=== PATIENT | female | born 1945 | race Caucasian/White ===

== ENCOUNTER 2020-03-19 10:51 | Outpatient (CLI) | payer MEDICARE, SELFPAY ==
[2020-03-19 12:05] LABS: Add Urine Microscopic? YES; Appearance Urine Clear (Clear); Bilirubin Urine Negative (Negative); Blood Urine Negative (Negative); Color Urine Colorless (Yellow); Glucose Urine UA Negative (Negative); Ketones Urine Negative (Negative); Leukocyte Esterase Ur Trace LEU/UL (Negative); Nitrate Urine Negative (Negative); Protein Urine Negative (Negative); RBC Urine 0-2 /hpf (0-2); Specific Grav Ur 1.006 (1.001-1.035); Squamous Epithelial Cell Urine Rare /hpf (Few); Urobilinogen Urine Negative mg/dL (<2.0); WBC Urine 0-3 /hpf
== END 2020-03-19 10:52 | disposition home or self-care (01) ==
PROVIDERS: PCP Internal Medicine; Visit Provider Internal Medicine
DX: R31.9 Hematuria, unspecified (principal)
CPT/HCPCS: 81001

== ENCOUNTER 2020-04-10 09:19 | Outpatient (CLI) | payer MEDICARE, SELFPAY ==
--- NOTE | 2020-04-10 09:20 | ECG_ITS ---
Measurements Intervals [place] Rate: 62 P: 31 SD: 149 QRS: 7 QRSD: 93 T: 33 QT: 439 QTc: 446 Interpretive Statements SINUS RHYTHM DELAYED PRECORDIAL R/S TRANSITION BORDERLINE ST-T WAVE ABNORMALITY- ANT/HIGH LAT LEADS BORDERLINE ECG Electronically Signed On 04-10-2020 14:43:38 [employer] by Chase Holly D.O.
[2020-04-10 10:08] LABS: Hematocrit 42.6 % (37.0-47.0); Hemoglobin 14.1 g/dL (12.0-15.0)
== END 2020-04-10 09:20 | disposition home or self-care (01) ==
PROVIDERS: PCP Internal Medicine; Visit Provider Obstetrics & Gynecology
DX: Z01.818 Encounter for other preprocedural examination (principal); N95.0 Postmenopausal bleeding; I10 Essential (primary) hypertension
CPT/HCPCS: 36415; 85014; 85018; 93005

== ENCOUNTER 2020-04-15 02:47 | Outpatient (CLI) | payer MEDICARE, SELFPAY ==
[2020-04-15 19:46] LABS: SARS-CoV-2 RNA PCR Negative
== END 2020-04-15 02:48 | disposition home or self-care (01) ==
LOC: ANHCOVIDDT 02:47
PROVIDERS: PCP Internal Medicine; Visit Provider Obstetrics & Gynecology
DX: Z01.812 Encounter for preprocedural laboratory examination (principal); Z20.828 Contact with and (suspected) exposure to other viral communicable diseases
CPT/HCPCS: 87635; C9803; U0003

== ENCOUNTER 2020-04-18 04:14 | Day surgery (SDC) | payer MEDICARE, SELFPAY ==
[2020-04-09 10:17] VITALS: BMI 26.6
--- NOTE | 2020-04-15 11:50 | PM.IMHP ---
H&P: HPI History of Present Illness Date/Time: 04/15/20 11:50 Chief complaint: Postmenopausal Bleeding Narrative: Marianela Resendiz is a 75 year old female admitted for hysteroscopy and dilatation curettage. She would she would noted remote history of pinkish discharge had not been sexually active. She underwent an ultrasound which showed an area of thickening inside the uterus with a questionable solid appearing lesion present. There is some vascular flow leading to making it unlikely to be a polyp. Risks and benefits of this procedure reviewed. She received the [employer] handout entitled hysteroscopy and dilatation and curettage respectively. She asked to proceed Review of Systems Review of Systems: All systems reviewed & are unremarkable except as noted in HPI and below PMFSH Past Medical History Medical History Arthritis Cataracts, bilateral Colonoscopy planned 2009 Coronary artery disease CABG done in 1999, Hypercholesterolemia Hypertension Musculoskeletal disorder Hammertoe right foot, Postmenopausal Seasonal allergies Systemic lupus erythematosus Surgical History Surgical History History of tonsillectomy Family History Family History Mother Family history of malignant neoplasm of breast in first degree relative Patient's mother is Father Patient's father is Acute myocardial infarction Family history of heart disease in male family member before age 55 Social History Social History Smoking status: Former smoker Second hand tobacco smoke exposure: No Smoking end date: 11/27/74 Additional smoking assessment comments: SMOKED 1 CIG AFTER DINNER X 10 YEARS Alcohol intake: current Drinks per week: 1 Substance use: never Spiritual care concerns: No Meds Home Medications and Allergies Home Medications Medication Instructions Recorded Confirmed Type aspirin 81 mg tablet,delayed 81 mg PO DAILY 05/07/19 04/09/20 History release diclofenac sodium 1 % topical gel 2 gm TOPICAL QID PRN 05/07/19 04/09/20 History ezetimibe 10 mg tablet 10 mg PO DAILY 05/07/19 04/09/20 History felodipine 5 mg tablet,extended 5 mg PO QAM 05/07/19 04/09/20 History release 24 hr hydrocortisone 2.5 % topical cream 1 applic RECTAL DAILY PRN 05/07/19 04/09/20 History with perineal applicator lisinopril 40 mg tablet 40 mg PO HS 05/07/19 04/09/20 History metoprolol tartrate 50 mg tablet 50 mg PO QAM 05/07/19 04/09/20 History atorvastatin 20 mg tablet 20 mg PO DAILY 05/10/19 04/09/20 History cetirizine [Zyrtec] 10 mg PO DAILY #30 tablet 05/26/19 04/09/20 Rx alprazolam 0.25 mg tablet 0.25 mg PO DAILY PRN #30 tablet 08/14/19 04/09/20 Rx alendronate 35 mg PO WEEKLY 04/09/20 04/09/20 History ascorbic acid (vitamin C) 282 mg PO DAILY 04/09/20 04/09/20 History [Chewable Vitamin C] cholecalciferol (vitamin D3) 50 mcg PO DAILY 04/09/20 04/09/20 History [Vitamin D3] hydroxychloroquine [Plaquenil] 400 mg PO QAM 04/09/20 04/09/20 History thttrlwamndb-Fd-zloh-minerals 1 tablet PO DAILY 04/09/20 04/09/20 History [Multiple Vitamin, Womens] Allergies Allergy/AdvReac Type Severity Reaction Status Date / Time codeine AdvReac Unknown Vomiting Verified 04/09/20 10:02 Exam Const: General: no acute distress Eyes: General: appearance normal, both eyes and all related structures Neck: Neck: supple and no JVD Thyroid: thyroid normal Resp: Effort & Inspection: normal respiratory effort Auscultation: clear to auscultation bilaterally Cardio: Rate: regular rate Rhythm: regular rhythm GI: Inspection: non-distended GI Palp: Yes Soft to palpation, No Tenderness to palpation present (GI) and No Guarding due to palpation present (GI) Auscultation: normal bowel sounds G
--- NOTE | 2020-04-17 10:27 | WPDANESEPPF ---
Anes - Initial Pre Proc Eval Procedure: Operation Date: 04/18/20 13:45 Proposed Procedures p Hysteroscopy, Dilation And Curettage With Polypectomy - Julius Sanders MD Date/Time: 04/17/20 10:27 Surgeon: Julius Sanders MD Pre Op Diagnosis: Postmenopausal Bleeding Patient Data Age: 75 Gender: F Height: 1.57 m Weight: 66 kg Allergies Allergy/AdvReac Type Severity Reaction Status Date / Time codeine AdvReac Unknown Vomiting Verified 04/18/20 12:02 Home Medications Medication Instructions Recorded Confirmed Type aspirin 81 mg tablet,delayed 81 mg PO DAILY 05/07/19 04/18/20 History release diclofenac sodium 1 % topical gel 2 gm TOPICAL QID PRN 05/07/19 04/18/20 History ezetimibe 10 mg tablet 10 mg PO DAILY 05/07/19 04/18/20 History felodipine 5 mg tablet,extended 5 mg PO QAM 05/07/19 04/18/20 History release 24 hr hydrocortisone 2.5 % topical cream 1 applic RECTAL DAILY PRN 05/07/19 04/18/20 History with perineal applicator lisinopril 40 mg tablet 40 mg PO HS 05/07/19 04/18/20 History metoprolol tartrate 50 mg tablet 50 mg PO QAM 05/07/19 04/18/20 History atorvastatin 20 mg tablet 20 mg PO DAILY 05/10/19 04/18/20 History cetirizine [Zyrtec] 10 mg PO DAILY #30 tablet 05/26/19 04/18/20 Rx alprazolam 0.25 mg tablet 0.25 mg PO DAILY PRN #30 tablet 08/14/19 04/18/20 Rx alendronate 35 mg PO WEEKLY 04/09/20 04/18/20 History ascorbic acid (vitamin C) 282 mg PO DAILY 04/09/20 04/18/20 History [Chewable Vitamin C] cholecalciferol (vitamin D3) 50 mcg PO DAILY 04/09/20 04/18/20 History [Vitamin D3] hydroxychloroquine [Plaquenil] 400 mg PO QAM 04/09/20 04/18/20 History hcjlvlnmukfo-Xe-agpz-minerals 1 tablet PO DAILY 04/09/20 04/18/20 History [Multiple Vitamin, Womens] Patient hx anesthesia problems: none Family hx anesthesia problems: none [facility] Past Medical History Medical History Arthritis Cataracts, bilateral Colonoscopy planned 2009 Coronary artery disease CABG done in 1999, Hypercholesterolemia Hypertension Musculoskeletal disorder Hammertoe right foot, Postmenopausal Seasonal allergies Systemic lupus erythematosus Surgical History Surgical History History of tonsillectomy Family History Family History Mother Family history of malignant neoplasm of breast in first degree relative Patient's mother is Father Patient's father is Acute myocardial infarction Family history of heart disease in male family member before age 55 Social History Social History Smoking status: Former smoker Second hand tobacco smoke exposure: No Smoking end date: 11/27/74 Additional smoking assessment comments: SMOKED 1 CIG AFTER DINNER X 10 YEARS Alcohol intake: current Drinks per week: 1 Substance use: never Living arrangements: with family Spiritual care concerns: No Anes - Eval Final PreProcedure Day of Procedure 04/17/20 10:27 Patient weight: overweight Heart: regular rate and rhythm Lungs: clear to auscultation and normal air movement Airway: Mallampati scale class II Neurological: alert and oriented Last oral intake: >/= 8 hours ASA classification: III Emergent: no Anesthetic plan: proceed Anesthesia type and monitoring: general GIVS and standard monitoring Informed Consent: The patient's anesthetic plan and its attendant risks and benefits were discussed with the patient/family/POA. Questions were solicited and answers provided to the satisfaction of the patient/family/POA.
--- NOTE | 2020-04-18 06:37 | WPDHPUPDATE1 ---
History and Physical Update Update Date/Time: 04/18/20 06:37 History and Physical has been reviewed, including an updated exam of the patient. There are NO changes in the patient's condition. Risks, benefits, and alternatives have been discussed and questions answered. Patient agrees to proceed with procedure.
[2020-04-18 12:06] VITALS: BP 147/63; PULSE 65; RESP 18; TEMP 36.8; O2SAT 99
[2020-04-18] MEDS: LACTATED RINGERS 1,000 ML 30 ML IV CONT (12:15)
--- NOTE | 2020-04-18 12:20 | WPDANESEPP ---
Anes - Eval Pre Procedure Procedure: Operation Date: 04/18/20 13:45 Proposed Procedures p Hysteroscopy, Dilation And Curettage With Polypectomy - Julius Sanders MD Date/Time: 04/18/20 12:20 Pre Op Diagnosis: Postmenopausal Bleeding Patient Data Age: 75 Gender: F Height: 5 ft 2 in Weight: 66 kg Allergies Allergy/AdvReac Type Severity Reaction Status Date / Time codeine AdvReac Unknown Vomiting Verified 04/18/20 12:02 Home Medications Medication Instructions Recorded Confirmed Type aspirin 81 mg tablet,delayed 81 mg PO DAILY 05/07/19 04/18/20 History release diclofenac sodium 1 % topical gel 2 gm TOPICAL QID PRN 05/07/19 04/18/20 History ezetimibe 10 mg tablet 10 mg PO DAILY 05/07/19 04/18/20 History felodipine 5 mg tablet,extended 5 mg PO QAM 05/07/19 04/18/20 History release 24 hr hydrocortisone 2.5 % topical cream 1 applic RECTAL DAILY PRN 05/07/19 04/18/20 History with perineal applicator lisinopril 40 mg tablet 40 mg PO HS 05/07/19 04/18/20 History metoprolol tartrate 50 mg tablet 50 mg PO QAM 05/07/19 04/18/20 History atorvastatin 20 mg tablet 20 mg PO DAILY 05/10/19 04/18/20 History cetirizine [Zyrtec] 10 mg PO DAILY #30 tablet 05/26/19 04/18/20 Rx alprazolam 0.25 mg tablet 0.25 mg PO DAILY PRN #30 tablet 08/14/19 04/18/20 Rx alendronate 35 mg PO WEEKLY 04/09/20 04/18/20 History ascorbic acid (vitamin C) 282 mg PO DAILY 04/09/20 04/18/20 History [Chewable Vitamin C] cholecalciferol (vitamin D3) 50 mcg PO DAILY 04/09/20 04/18/20 History [Vitamin D3] hydroxychloroquine [Plaquenil] 400 mg PO QAM 04/09/20 04/18/20 History udxxbgjemrbo-Nf-swmb-minerals 1 tablet PO DAILY 04/09/20 04/18/20 History [Multiple Vitamin, Womens] Patient hx anesthesia problems: none Family hx anesthesia problems: none PMFSH Past Medical History Medical History Arthritis Cataracts, bilateral Colonoscopy planned 2010 Coronary artery disease CABG done in 1999, Hypercholesterolemia Hypertension Musculoskeletal disorder Hammertoe right foot, Postmenopausal Seasonal allergies Systemic lupus erythematosus Surgical History Surgical History History of tonsillectomy Family History Family History Mother Family history of malignant neoplasm of breast in first degree relative Patient's mother is Father Patient's father is Acute myocardial infarction Family history of heart disease in male family member before age 55 Social History Social History Smoking status: Former smoker Second hand tobacco smoke exposure: No Smoking end date: 11/27/74 Additional smoking assessment comments: SMOKED 1 CIG AFTER DINNER X 10 YEARS Alcohol intake: current Drinks per week: 1 Substance use: never Living arrangements: with family Spiritual care concerns: No Exam Day of Procedure 04/18/20 12:20 Patient weight: normal Heart: regular rate and rhythm Lungs: clear to auscultation Airway: Mallampati scale class II Neurological: alert and oriented
[2020-04-18] MEDS: LIDOCAINE HCL 1% LOCAL INJ 20 ML VIAL 10 ML INFILTRATE (12:40)
--- NOTE | 2020-04-18 12:48 | PM.PROC ---
Procedure Note - Detailed Date of procedure: 04/18/20 Pre-op diagnosis: Postmenopausal Bleeding Surgeon: Julius Sanders MD Postop diagnosis: Postmenopausal bleeding / endometrial polyp Procedure: Hysteroscopy / dilatation and curettage / polypectomy Anesthesia: IV sedation local EBL: 5Cc Complications: None Findings: A benign-appearing endometrial polyp. Small amount of mucus. Otherwise benign-appearing endometrium. Description of procedure: The patient was prepped and draped in the normal sterile fashion placed in the dorsal lithotomy position. Under excellent IV sedation weighted speculum was placed in posterior fornix of vagina. Anterior lip of the cervix was grasped with a single-tooth tenaculum. 2.5cc of 1% xylocaine anesthesia placed at 2, 4, 8, 10:00 a.m. of the cervix. The uterus sounded to 8cm. Serial dilatation with fragmented dilators performed. This was followed by passage of the 5mm visualizing hysteroscope using normal saline as visualizing medium. A polypoid lesion was seen. This was grasped with a polyp forceps removed piecemeal. The uterus was then scraped over the entire 360? until a good grating sound was heard. No further tissue removed, the instruments removed. All sponge, needle, instrument counts were correct. Blood loss was estimated at5cc. There were no immediate complications
[2020-04-18 12:49] VITALS: BP 87/50; PULSE 61; RESP 20; O2SAT 91
[2020-04-18 13:15] VITALS: BP 112/62; PULSE 68; RESP 20
[2020-04-18 13:40] VITALS: BP 130/64; PULSE 52; RESP 20
== END 2020-04-18 13:59 | disposition home or self-care (01) ==
PROVIDERS: PCP Internal Medicine; Visit Provider Obstetrics & Gynecology
PROC: 0U5B8ZZ Destruction of Endometrium, Via Natural or Artificial Opening Endoscopic (ICD-10-PCS; CPT 58563; principal; 2020-04-18 13:45)
DX: C54.1 Malignant neoplasm of endometrium (principal); N84.0 Polyp of corpus uteri; I25.10 Atherosclerotic heart disease of native coronary artery without angina pectoris; I10 Essential (primary) hypertension; E78.00 Pure hypercholesterolemia, unspecified; M32.9 Systemic lupus erythematosus, unspecified; Z95.1 Presence of aortocoronary bypass graft; Z87.891 Personal history of nicotine dependence
CPT/HCPCS: 58558; 88305; A9270; J0131; J2405; J2704; J3010; J7030; J7120

== ENCOUNTER 2020-04-29 09:11 | Outpatient (CLI) | payer MEDICARE, SELFPAY ==
[2020-04-29 19:16] LABS: SARS-CoV-2 RNA PCR Negative
== END 2020-04-29 09:12 | disposition home or self-care (01) ==
LOC: ANHCOVIDDT 09:11
PROVIDERS: PCP Internal Medicine; Visit Provider Obstetrics & Gynecology
DX: Z01.812 Encounter for preprocedural laboratory examination (principal); Z20.828 Contact with and (suspected) exposure to other viral communicable diseases
CPT/HCPCS: 87635; C9803; U0003

== ENCOUNTER 2020-04-29 14:24 | Outpatient (CLI) | payer MEDICARE, SELFPAY ==
[2020-04-29 14:59] LABS: Basophils Absolute Auto 0.1 K/mm3 (0.0-0.1); Eosinophils Absolute Auto 0.1 K/mm3 (0-0.3); Eosinophils Percent Auto 1.3 % (0-4.4); Hematocrit 38.1 % (37.0-47.0); Hemoglobin 12.5 g/dL (12.0-15.0); Immature Granulocyte Absolute 0.01 K/mm3 (0.00-0.031); Immature Granulocyte Percent A 0.1 % (0-0.5); Lymphocytes Absolute Auto 1.67 K/mm3 (0.9-3.2); Lymphocytes Percent Auto 24.6 % (18.3-44.2); Mean Corpuscular HGB Conc 32.8 g/dl (32-36); Mean Corpuscular Hemoglobin 31.4 pg (26-34); Mean Corpuscular Volume 95.7 fl (80-100); Mean Platelet Volume 9.7 fl (7.4-10.4); Monocytes Absolute Auto 0.4 K/mm3 (0.1-0.6); Monocytes Percent Auto 6.5 % (2.6-8.5); Neutrophils Absolute Auto 4.5 K/mm3 (1.3-6.7); Neutrophils Percent Auto 66.5 % (45.5-73.1); Platelet Count Result 323 k/mm3 (150-375); Red Blood Count 3.98 M/mm3 (4.2-5.4); White Blood Count 6.8 K/mm3 (4.5-10.0)
== END 2020-04-29 14:25 | disposition home or self-care (01) ==
LOC: ANHSURGERY 14:25
PROVIDERS: PCP Internal Medicine; Visit Provider Obstetrics & Gynecology
DX: Z01.812 Encounter for preprocedural laboratory examination (principal); C54.1 Malignant neoplasm of endometrium
CPT/HCPCS: 36415; 85025; 86850; 86900; 86901; 87635; C9803; U0003

== ENCOUNTER 2020-05-01 01:20 | Day surgery (SDC) | payer MEDICARE, SELFPAY ==
--- NOTE | 2020-04-29 09:13 | PM.IMHP ---
H&P: HPI History of Present Illness Date/Time: 04/29/20 09:13 Chief complaint: endometrial CA, postmenopausal bleeding Narrative: Marianela Resendiz is a 75 year old female For robotic hysterectomy and bilateral salpingo-oophorectomy. She had a biopsy of a polyp that showed a grade 1 endometrial cancer. There was no myometrial invasion. She is admitted for hysterectomy and bilateral salpingo-oophorectomy. Risks and benefits were reviewed in full Review of Systems Review of Systems: All systems reviewed & are unremarkable except as noted in HPI and below PMFSH Past Medical History Medical History Arthritis Cataracts, bilateral Colonoscopy planned 2010 Coronary artery disease CABG done in 1999, Hypercholesterolemia Hypertension Musculoskeletal disorder Hammertoe right foot, Postmenopausal Seasonal allergies Systemic lupus erythematosus Surgical History Surgical History History of tonsillectomy Family History Family History Mother Family history of malignant neoplasm of breast in first degree relative Patient's mother is Father Patient's father is Acute myocardial infarction Family history of heart disease in male family member before age 55 Social History Social History Smoking status: Former smoker Second hand tobacco smoke exposure: No Smoking end date: 11/27/74 Additional smoking assessment comments: SMOKED 1 CIG AFTER DINNER X 10 YEARS Alcohol intake: current Drinks per week: 1 Substance use: never Spiritual care concerns: No Meds Home Medications and Allergies Home Medications Medication Instructions Recorded Confirmed Type aspirin 81 mg tablet,delayed 81 mg PO DAILY 05/07/19 04/18/20 History release diclofenac sodium 1 % topical gel 2 gm TOPICAL QID PRN 05/07/19 04/18/20 History ezetimibe 10 mg tablet 10 mg PO DAILY 05/07/19 04/18/20 History felodipine 5 mg tablet,extended 5 mg PO QAM 05/07/19 04/18/20 History release 24 hr hydrocortisone 2.5 % topical cream 1 applic RECTAL DAILY PRN 05/07/19 04/18/20 History with perineal applicator lisinopril 40 mg tablet 40 mg PO HS 05/07/19 04/18/20 History metoprolol tartrate 50 mg tablet 50 mg PO QAM 05/07/19 04/18/20 History atorvastatin 20 mg tablet 20 mg PO DAILY 05/10/19 04/18/20 History cetirizine [Zyrtec] 10 mg PO DAILY #30 tablet 05/26/19 04/18/20 Rx alprazolam 0.25 mg tablet 0.25 mg PO DAILY PRN #30 tablet 08/14/19 04/18/20 Rx alendronate 35 mg PO WEEKLY 04/09/20 04/18/20 History ascorbic acid (vitamin C) 282 mg PO DAILY 04/09/20 04/18/20 History [Chewable Vitamin C] cholecalciferol (vitamin D3) 50 mcg PO DAILY 04/09/20 04/18/20 History [Vitamin D3] hydroxychloroquine [Plaquenil] 400 mg PO QAM 04/09/20 04/18/20 History vfjpagifvftw-Va-ekvy-minerals 1 tablet PO DAILY 04/09/20 04/18/20 History [Multiple Vitamin, Womens] Allergies Allergy/AdvReac Type Severity Reaction Status Date / Time codeine AdvReac Unknown Vomiting Verified 04/18/20 12:02 Exam Const: General: no acute distress Eyes: General: appearance normal, both eyes and all related structures Neck: Neck: supple and no JVD Thyroid: thyroid normal Resp: Effort & Inspection: normal respiratory effort Auscultation: clear to auscultation bilaterally Cardio: Rate: regular rate Rhythm: regular rhythm GI: Inspection: non-distended GI Palp: Yes Soft to palpation, No Tenderness to palpation present (GI) and No Guarding due to palpation present (GI) Auscultation: normal bowel sounds : General: Yes bladder normal to palpation External Female Exam: normal external appearance Speculum Exam - Vagina: normal vaginal discharge and No vaginal bleeding Speculum Exam - Cervix: nontender Bimanual exam- vagi
[2020-04-29 10:38] VITALS: BMI 26.6
[2020-05-01] VITALS (15 sets, daily range): BP systolic 127–169; BP diastolic 58–75; PULSE 50–66; RESP 12–20; TEMP 36.2–36.7; O2SAT 95–100
--- NOTE | 2020-05-01 07:48 | WPDHPUPDATE1 ---
History and Physical Update Update Date/Time: 05/01/20 07:48 History and Physical has been reviewed, including an updated exam of the patient. There are NO changes in the patient's condition. Risks, benefits, and alternatives have been discussed and questions answered. Patient agrees to proceed with procedure.
--- NOTE | 2020-05-01 11:01 | WPDANESEPPF ---
Anes - Initial Pre Proc Eval Procedure: Operation Date: 05/01/20 12:00 Proposed Procedures p Robotic Assisted Total Vaginal Hysterectomy, Bilateral Salpingo-Oophorectomy - Julius Sanders MD Date/Time: 05/01/20 11:02 Surgeon: Julius Sanders MD Pre Op Diagnosis: endometrial CA, postmenopausal bleeding Patient Data Age: 75 Gender: F Height: 5 ft 2 in Weight: 66 kg Allergies Allergy/AdvReac Type Severity Reaction Status Date / Time codeine AdvReac Unknown Vomiting Verified 04/29/20 10:30 Home Medications Medication Instructions Recorded Confirmed Type aspirin 81 mg tablet,delayed 81 mg PO DAILY 05/07/19 04/29/20 History release diclofenac sodium 1 % topical gel 2 gm TOPICAL QID PRN 05/07/19 04/29/20 History ezetimibe 10 mg tablet 10 mg PO DAILY 05/07/19 04/29/20 History felodipine 5 mg tablet,extended 5 mg PO QAM 05/07/19 04/29/20 History release 24 hr hydrocortisone 2.5 % topical cream 1 applic RECTAL DAILY PRN 05/07/19 04/29/20 History with perineal applicator lisinopril 40 mg tablet 40 mg PO HS 05/07/19 04/29/20 History metoprolol tartrate 50 mg tablet 50 mg PO QAM 05/07/19 04/29/20 History atorvastatin 20 mg tablet 20 mg PO DAILY 05/10/19 04/29/20 History cetirizine [Zyrtec] 10 mg PO DAILY #30 tablet 05/26/19 04/29/20 Rx alendronate 35 mg PO WEEKLY 04/09/20 04/29/20 History ascorbic acid (vitamin C) 282 mg PO DAILY 04/09/20 04/29/20 History [Chewable Vitamin C] cholecalciferol (vitamin D3) 50 mcg PO DAILY 04/09/20 04/29/20 History [Vitamin D3] hydroxychloroquine [Plaquenil] 400 mg PO QAM 04/09/20 04/29/20 History qstacsdpobmd-Md-giqo-minerals 1 tablet PO DAILY 04/09/20 04/29/20 History [Multiple Vitamin, Womens] alprazolam 0.25 mg tablet 0.25 mg PO DAILY PRN #30 tablet 12/02/20 Rx hydrocodone-acetaminophen [[place]] 1 tablet PO Q4H PRN #20 tablet 05/01/20 Rx Patient hx anesthesia problems: none Family hx anesthesia problems: none PMFSH Past Medical History Medical History Arthritis Cataracts, bilateral Colonoscopy planned 2009 Coronary artery disease CABG done in 1999, Hypercholesterolemia Hypertension Musculoskeletal disorder Hammertoe right foot, Postmenopausal Seasonal allergies Systemic lupus erythematosus Surgical History Surgical History History of tonsillectomy Family History Family History Mother Family history of malignant neoplasm of breast in first degree relative Patient's mother is Father Patient's father is Acute myocardial infarction Family history of heart disease in male family member before age 55 Social History Social History Smoking status: Former smoker Second hand tobacco smoke exposure: No Smoking end date: 11/27/69 Additional smoking assessment comments: SMOKED < PACK/WEEK X5 YEARS Alcohol intake: current Drinks per week: 7 Alcohol use details: WINE, 1 GLASS/DAY Substance use: never Living arrangements: with family Additional living arrangements comments: Spiritual care concerns: No Anes - Eval Final PreProcedure Day of Procedure 05/01/20 11:02 Patient weight: overweight Heart: regular rate and rhythm Lungs: clear to auscultation Airway: Mallampati scale class II and special considerations poor opening Neurological: alert and oriented Last oral intake: >/= 8 hours ASA classification: III Emergent: no Anesthetic plan: proceed Anesthesia type and monitoring: general ETT and standard monitoring Informed Consent: The patient's anesthetic plan and its attendant risks and benefits were discussed with the patient/family/POA. Questions were solicited and answers provided to the satisfaction of the patient/family/POA.
[2020-05-01] MEDS: ACETAMINOPHEN 500 MG TABLET 1000 MG PO (11:21)
[2020-05-01] MEDS: LACTATED RINGERS 1,000 ML 30 ML IV CONT ×2 (11:32→13:48)
[2020-05-01] MEDS: KETOROLAC 15 MG/ML VIAL (*BKC) IV PUSH (11:40)
[2020-05-01] MEDS: ceFAZolin 2 GM/D5W 50 ML 2 GM/50 ML BAG IVPB (12:05)
--- NOTE | 2020-05-01 13:34 | PM.PROC ---
Procedure Note - Detailed Date of procedure: 05/01/20 Pre-op diagnosis: endometrial CA, postmenopausal bleeding Surgeon: Julius Sanders MD Postop diagnosis: Endometrial cancer/postmenopausal bleeding Procedure: Robotic total vaginal hysterectomy and bilateral salpingo-oophorectomy EBL: 100cc Anesthesia: General endotracheal Findings: Small uterus ovaries and tubes. The tissue was week. Complications: None Description of procedure: The patient was prepped and draped in the normal sterile fashion placed in dorsal lithotomy position. Under excellent general trach anesthesia weighted speculum placed in posterior fornix of vagina. Anterior lip of the cervix grasped with single-tooth tenaculum. Uterus sounded to 8cm. Serial dilatation with fragmented dilators performed followed by passage of the 8. IKE in 3. Cold cup. Next the 16 Belgian catheter was placed. The remainder the instruments reused and gloves were changed. A supraumbilical incision made. The Veress needle passed in the abdomen. Abdomen filled with CO2 gas [id number]. The 8mm trocar advanced in the abdomen. Downside visualized no injury seen. The gas was reattached and the patient placed in Trendelenburg. Right left lateral quadrant incisions were made the 8mm trocars advanced under direct visualization assuring no injury. Right upper quadrant incision made the 10mm trocar advanced under direct visualization assuring no injury. The robot was docked. The left round ligament grasped, burned, cut. Anteriorly bladder was dissected away last caudally to the opposite round ligament was clamped, burned, cut. Next the infundibulopelvic structure on the left was skeletonized to remove the left ovary tube clamped, burned, cut and brought to the level of the previously cut round ligament. In like fashion removing the right ovary and tube the infundibulopelvic structure was clamped, burned, cut and brought to the level of previously cut round ligament. Next the cardinal and broad ligaments were serially skeletonized. These were clamped, burned, cut. And brought down to the level uterine vessels the uterine vessels on the left were clamped, burned, cut. Excellent blanching was seen the uterine vessels on the right were clamped, burned, cut. A colpotomy incision was made the cervix uterus removed from the MARYA of vagina. Vagina was closed with continuous running 0V lock from lateral edge to lateral edge back the midline. Irrigation undertaken to clear hematuria was placed over the raw areas. The robot was undocked. The gas removed from the abdomen. The incisions closed with 4 Monocryl and glue. The patient went to recovery in satisfactory condition. All sponge, needle, instrument counts were correct.
[2020-05-01] MEDS: fentaNYL CITRATE INJ (*CRX) 100 MCG/2 ML VIAL 25 MCG IV PUSH ×3 (14:25→14:35)
[2020-05-01] MEDS: ONDANSETRON INJ 4 MG/2 ML VIAL IV PUSH (14:47)
--- NOTE | 2020-05-01 14:54 | SUR.PHASEI ---
1447; PT C/O MILD NAUSEA. ASKING FOR MEDICINE TO PREVENT WORSENING NAUSEA. 1455; PT AROUSES EASILY. STATES PAIN 4/10 AND NAUSEA IMPROVED. MEETS DISCHARGE CRITERIA.
--- NOTE | 2020-05-01 15:04 | PC.NURSE ---
This patient, Marianela Resendiz, was received from PACU per bed to room 289. Patient/family oriented to unit policies and routines
[2020-05-01] MEDS: DEXTROSE 5%/LACTATED RINGERS 1,000 ML 125 ML IV CONT ×2 (15:13→22:39)
[2020-05-01] MEDS: KETOROLAC 30 MG/ML VIAL (*BKC) IV PUSH (17:34)
[2020-05-01] MEDS: ATORVASTATIN 20 MG TABLET PO (21:01)
[2020-05-01] MEDS: lisinopriL 20 MG TABLET 40 MG PO (21:02)
[2020-05-01] MEDS: EZETIMIBE 10 MG TABLET PO (21:02)
[2020-05-01] MEDS: MORPHINE SULFATE (*CRX) 4 MG/ML INJ IV PUSH (22:13)
[2020-05-02 04:10] VITALS: BP 145/52; PULSE 60; PULSE 62; RESP 16; TEMP 36.8; O2SAT 99
[2020-05-02] MEDS: ONDANSETRON INJ 4 MG/2 ML VIAL IV PUSH (04:56)
[2020-05-02] MEDS: KETOROLAC 30 MG/ML VIAL (*BKC) IV PUSH (05:01)
[2020-05-02 05:32] LABS: Basophils Percent Auto 0.3 % (0.2-1.2); Hematocrit 33.5 % (37.0-47.0); Hemoglobin 11.1 g/dL (12.0-15.0); Immature Granulocyte Absolute 0.01 K/mm3 (0.00-0.031); Immature Granulocyte Percent A 0.1 % (0-0.5); Lymphocytes Absolute Auto 0.84 K/mm3 (0.9-3.2); Lymphocytes Percent Auto 9.6 % (18.3-44.2); Mean Corpuscular HGB Conc 33.1 g/dl (32-36); Mean Corpuscular Hemoglobin 31.8 pg (26-34); Mean Platelet Volume 10.6 fl (7.4-10.4); Monocytes Absolute Auto 0.7 K/mm3 (0.1-0.6); Monocytes Percent Auto 8.5 % (2.6-8.5); Neutrophils Absolute Auto 7.1 K/mm3 (1.3-6.7); Neutrophils Percent Auto 81.5 % (45.5-73.1); Platelet Count Result 231 k/mm3 (150-375); Red Blood Count 3.49 M/mm3 (4.2-5.4); Red Cell Distribution Width 13.3 % (11.5-14.5); White Blood Count 8.7 K/mm3 (4.5-10.0)
--- NOTE | 2020-05-02 06:50 | PM.DS ---
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 Hospital course was unremarkable. She remained afebrile. She was up, holding the difficulty, passing gas, eating regular diet and generally without complaints. Incisions were clean dry and intact Exam Const: General: no acute distress Eyes: General: appearance normal, both eyes and all related structures Neck: Neck: supple and no JVD Thyroid: thyroid normal Resp: Effort & Inspection: normal respiratory effort Auscultation: clear to auscultation bilaterally Cardio: Rate: regular rate Rhythm: regular rhythm GI: Inspection: non-distended GI Palp: Yes Soft to palpation, No Tenderness to palpation present (GI) and No Guarding due to palpation present (GI) Auscultation: normal bowel sounds : General: Yes bladder normal to palpation External Female Exam: normal external appearance Speculum Exam - Vagina: normal vaginal discharge and No vaginal bleeding Speculum Exam - Cervix: nontender Bimanual exam- vagina & uterus: bladder normal to palpation and No Cervical tenderness present OB/external & speculum: No vaginal bleeding Skin: General skin exam: no rashes or lesions noted Extrem: General: normal to inspection and no edema Psych: Mental Status: mental status grossly normal Affect: normal affect DS: Data Data Completed and Pending Pending studies at discharge: Pending at discharge 05/01/20 14:39 Surgical [PTH] Routine Labs on day of discharge: Labs from last 24 hours 05/02/20 04:32 WBC 8.7 RBC 3.49 L Hgb 11.1 L Hct 33.5 L MCV 96.0 MCH 31.8 MCHC 33.1 RDW 13.3 Plt Count 231 MPV 10.6 H Immature Gran % (Auto) 0.1 Neut % (Auto) 81.5 H Lymph % (Auto) 9.6 L [place] % (Auto) 8.5 Eos % (Auto) 0.0 Baso % (Auto) 0.3 Lymph # (Auto) 0.84 L [place] # (Auto) 0.7 H Eos # (Auto) 0.0 Baso # (Auto) 0.0 Abs Immat Gran (auto) 0.01 Absolute Neuts (auto) 7.1 H Absolute Nucleated RBC 0.0 Nucleated RBC % 0.0 Discharge Plan Discharge Patient Disposition: Home, Self-Care Stand Alone Forms: General Discharge Instructions Follow-up/Referrals: Julius Sanders MD [Physician] - Discharge Medications: New hydrocodone-acetaminophen [[place]] 5-325 mg tablet 1 tablet PO Q4H PRN (Reason: pain) Qty: 20 RF: 0 Continued cetirizine [Zyrtec] 10 mg tablet 10 mg PO DAILY Qty: 30 RF: 0 hydrocortisone [Anusol-HC] 2.5 % cream with perineal applicator 1 applic RECTAL DAILY PRN (Reason: Hemorrhoids) RF: 0 aspirin [Adult Low Dose Aspirin] 81 mg tablet,delayed release (DR/EC) 81 mg PO DAILY RF: 0 felodipine 5 mg tablet extended release 24 hr 5 mg PO QAM RF: 0 lisinopril 40 mg tablet 40 mg PO HS RF: 0 metoprolol tartrate 50 mg tablet 50 mg PO QAM RF: 0 diclofenac sodium [Voltaren] 1 % gel 2 gm TOPICAL QID PRN (Reason: Pain) RF: 0 ezetimibe [Zetia] 10 mg tablet 10 mg PO DAILY RF: 0 atorvastatin [Lipitor] 20 mg tablet 20 mg PO DAILY RF: 0 alendronate 35 mg tablet 35 mg PO WEEKLY RF: 0 hydroxychloroquine [Plaquenil] 200 mg tablet 400 mg PO QAM RF: 0 Multiple Vitamin, Womens Tablet 1 tablet PO DAILY RF: 0 cholecalciferol (vitamin D3) [Vitamin D3] 50 mcg (2,000 unit) Capsule 50 mcg PO DAILY RF: 0 ascorbic acid (vitamin C) 250 mg Tablet,Chewable 282 mg PO DAILY RF: 0 alprazolam [Xanax] 0.25 mg tablet 0.25 mg PO DAILY PRN (Reason: anxiety) Qty: 30 RF: 0
--- NOTE | 2020-05-02 06:53 | P.PNOB_ITS ---
OB - PN: Subj Subjective Date/time seen: 05/02/20 06:53 Patient comments: no complaints and pain well controlled OB - PN: Obj Data Labs CBC & Chem 7: 05/02/20 04:32 Labs: Laboratory Results - last 24 hr 05/02/20 04:32 WBC 8.7 RBC 3.49 L Hgb 11.1 L Hct 33.5 L MCV 96.0 MCH 31.8 MCHC 33.1 RDW 13.3 Plt Count 231 MPV 10.6 H Immature Gran % (Auto) 0.1 Neut % (Auto) 81.5 H Lymph % (Auto) 9.6 L [place] % (Auto) 8.5 Eos % (Auto) 0.0 Baso % (Auto) 0.3 Lymph # (Auto) 0.84 L [place] # (Auto) 0.7 H Eos # (Auto) 0.0 Baso # (Auto) 0.0 Abs Immat Gran (auto) 0.01 Absolute Neuts (auto) 7.1 H Absolute Nucleated RBC 0.0 Nucleated RBC % 0.0 OB - PN A/P Plan day: 1 Plan: routine care (Routine postoperative care), discharge home and follow up 6 weeks (2 weeks) Time Spent With Patient Time: Total time spent is greater than 50% in coordination of care (as d ocumented) at patient's floor/unit and/or counseling patient: Time with patient: less than 15 minutes Review of Systems Review of Systems: All systems reviewed & are unremarkable except as noted in HPI and below Exam Const: General: no acute distress Eyes: General: appearance normal, both eyes and all related structures Neck: Neck: supple and no JVD Thyroid: thyroid normal Resp: Effort & Inspection: normal respiratory effort Auscultation: clear to auscultation bilaterally Cardio: Rate: regular rate Rhythm: regular rhythm GI: Inspection: non-distended GI Palp: Yes Soft to palpation, No Tenderness to palpation present (GI) and No Guarding due to palpation present (GI) Auscultation: normal bowel sounds : General: Yes bladder normal to palpation External Female Exam: normal external appearance Speculum Exam - Vagina: normal vaginal discharge and No vaginal bleeding Speculum Exam - Cervix: nontender Bimanual exam- vagina & uterus: bladder normal to palpation and No Cervical tenderness present OB/external & speculum: No vaginal bleeding Skin: General skin exam: no rashes or lesions noted Extrem: General: normal to inspection and no edema Psych: Mental Status: mental status grossly normal Affect: normal affect
[2020-05-02 08:10] VITALS: BP 149/59; PULSE 65; RESP 18; TEMP 37.2; O2SAT 93
--- NOTE | 2020-05-02 08:12 | WPDANESPN ---
Anes - Prog Note Post-Op Date/Time: 05/02/20 08:12 Cardiovascular status: normal Respiratory status: normal Airway patency: baseline Mental status: baseline Post-Op hydration status: normal Vital Signs: Last Vital Signs Temp 36.8 C 05/02/20 04:10 Pulse 62 05/02/20 04:10 Resp 16 05/02/20 04:10 BP 145/52 H 05/02/20 04:10 Pulse Ox 99 05/02/20 04:10 Pain Score (VAS): 0 I/O: Intake & Output 05/01/20 05/02/20 05/02/20 23:59 07:59 15:59 Intake Total 1300 500 Output Total 300 600 Balance 1000 -100 Laboratory Tests 05/02/20 04:32 05/02/20 04:32 WBC 8.7 RBC 3.49 L Hgb 11.1 L Hct 33.5 L MCV 96.0 MCH 31.8 MCHC 33.1 RDW 13.3 Plt Count 231 MPV 10.6 H Immature Gran % (Auto) 0.1 Neut % (Auto) 81.5 H Lymph % (Auto) 9.6 L [place] % (Auto) 8.5 Eos % (Auto) 0.0 Baso % (Auto) 0.3 Lymph # (Auto) 0.84 L [place] # (Auto) 0.7 H Eos # (Auto) 0.0 Baso # (Auto) 0.0 Abs Immat Gran (auto) 0.01 Absolute Neuts (auto) 7.1 H Absolute Nucleated RBC 0.0 Nucleated RBC % 0.0 Post-procedural complaints: nausea Patient Feedback: Patient satisfied with anesthetic care.
--- NOTE | 2020-05-02 10:00 | PC.NURSE ---
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 PT verbalized understanding of such care.
[2020-05-02] MEDS: IBUPROFEN 600 MG TABLET PO (10:18)
[2020-05-02] MEDS: SIMETHICONE 80 MG TAB.CHEW PO (10:18)
[2020-05-02] MEDS: ENOXAPARIN 40 MG/0.4 ML SYRINGE SUB-Q (10:19)
[2020-05-02] MEDS: ONDANSETRON HCL ODT 4 MG TABLET PO (12:41)
--- NOTE | 2020-05-02 16:30 | PC.NURSE ---
PT received discharge instructions per protocol and verbalized understanding of such instructions.
--- NOTE | 2020-05-02 16:40 | PC.NURSE ---
PT discharged to home via wheelchair unaccompanied and taken to waiting car. follow up appts confirmed
== END 2020-05-02 16:40 | disposition home or self-care (01) ==
LOC: ANHSURGERY 10:02 → ANHOB2 15:07
PROVIDERS: PCP Internal Medicine; Visit Provider Obstetrics & Gynecology
PROC: (CPT 58571; principal; 2020-05-01 12:00)
DX: C54.1 Malignant neoplasm of endometrium (principal); N95.0 Postmenopausal bleeding; N80.0 Endometriosis of uterus; D25.1 Intramural leiomyoma of uterus; N73.6 Female pelvic peritoneal adhesions (postinfective); D18.09 Hemangioma of other sites; I25.10 Atherosclerotic heart disease of native coronary artery without angina pectoris; I10 Essential (primary) hypertension; E78.00 Pure hypercholesterolemia, unspecified; M32.9 Systemic lupus erythematosus, unspecified; Z95.1 Presence of aortocoronary bypass graft; Z87.891 Personal history of nicotine dependence; Z79.82 Long term (current) use of aspirin
CPT/HCPCS: 58571; S2900; 36415; 85025; 86850; 86900; 86901; 87635; 88307; 88309; 99199; A9270; C9803; J0330; J0690; J1100; J1650; J1885; J2270; J2405; J2704; J3010; J7030; J7120; J7121; U0003

== ENCOUNTER 2020-05-14 15:02 | Emergency (ER) | payer MEDICARE, SELFPAY ==
--- NOTE | ~2020-05-14 | CT_ITS ---
EXAMINATION: CT abdomen pelvis w con EXAM DATE: 05/14/2020 16:47 INDICATION: Abdominal pain, constipation after hysterectomy. TECHNIQUE: Spiral CT of the abdomen and pelvis was performed following intravenous injection of 100 m L Omnipaque 350. Axial, coronal and sagittal images were reviewed. The dose-length product (DLP) fo r this examination was 425.88 mGy-cm. The exposure was tailored according to patient size (auto mA e xposure control), and iterative reconstruction (ASIR) was used as additional dose reduction technique . There is no prior study for comparison. FINDINGS: The liver, spleen, adrenal glands and pancreas are unremarkable. Gallbladder is unremarkab le. No biliary obstruction. Portal and splenic veins are patent. Kidneys enhance symmetrically. T here is no hydronephrosis. Small amount of fluid in the hysterectomy bed, postoperative. The bladder is unremarkable. There is no retroperitoneal or pelvic lymphadenopathy. There is mild to moderate scattered arteriosclerotic disease. Rectum and distal portion of sigmoid colon are collapsed. Proximal to this there is large amount of c olonic fluid and smaller amount of stool distally. There may be some edema of the rectosigmoid coloni c wall, could be colitis. Some gas along the left side of the anterior abdominal wall likely postoper ative. No intra-abdominal abscess. No pneumatosis intestinalis or portal venous gas. The stomach and small bowel are unremarkable. No free intraperitoneal gas. There are sternotomy wires. Heart norm al in size. The lung bases are unremarkable. There are no osteoblastic or osteolytic lesions identi fied. Mild lumbar levoscoliosis. IMPRESSION: 1. Rectosigmoid colonic wall edema and collapse, could be colitis with moderate to large amount of c olonic distention, mostly fluid. Consider colitis. 2. Subcutaneous gas likely postoperative.. Reviewed, dictated and finalized at location A. NG MACHINE OPERATOR IMPRESSION: 1. Rectosigmoid colonic wall edema and collapse, could be colitis with moderat e to large amount of colonic distention, mostly fluid. Consider colitis. 2. Subcutaneous gas likely postoperative..
[2020-05-14 15:04] VITALS: BP 138/72; PULSE 66; RESP 16; TEMP 36.6; O2SAT 100
--- NOTE | 2020-05-14 15:25 | ED.ABDPAIN ---
HPI - Abdominal Pain General Chief Complaint: Abdominal Pain Stated Complaint: constipation s/p hyst Time Seen by Provider: 05/14/20 15:17 Source: patient Mode of arrival: ambulatory Limitations: no limitations History of Present Illness HPI narrative: 75 years old white female came to the emergency room by private car complaining of intermittent abdominal pain for the last 7 days. Associated with nausea and intermittent vomiting. Patient denies any fever, chills, back pain, chest pain, shortness of breath, headache, urinary symptoms or exposure to anybody with COVID-19. Patient is status post hysterectomy May 01. 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 Patient reported that her last bowel movement was 2 days ago. Patient been on too much stool softener, patient is telling me that she gets so scared to push the stool out because of the surgery. Related Data Home Medications Medication Instructions Recorded Confirmed aspirin 81 mg tablet,delayed 81 mg PO DAILY 05/07/19 05/01/20 release diclofenac sodium 1 % topical gel 2 gm TOPICAL QID PRN 05/07/19 05/01/20 ezetimibe 10 mg tablet 10 mg PO DAILY 05/07/19 05/01/20 felodipine 5 mg tablet,extended 5 mg PO QAM 05/07/19 05/01/20 release 24 hr hydrocortisone 2.5 % topical cream 1 applic RECTAL DAILY PRN 05/07/19 04/29/20 with perineal applicator lisinopril 40 mg tablet 40 mg PO HS 05/07/19 05/01/20 metoprolol tartrate 50 mg tablet 50 mg PO QAM 05/07/19 05/01/20 atorvastatin 20 mg tablet 20 mg PO DAILY 05/10/19 05/01/20 Multiple Vitamin, Womens 1 tablet PO DAILY 04/09/20 05/01/20 alendronate 35 mg PO WEEKLY 04/09/20 05/01/20 ascorbic acid (vitamin C) 282 mg PO DAILY 04/09/20 05/01/20 cholecalciferol (vitamin D3) 50 mcg PO DAILY 04/09/20 05/01/20 [Vitamin D3] hydroxychloroquine [Plaquenil] 400 mg PO QAM 04/09/20 05/01/20 Allergies Allergy/AdvReac Type Severity Reaction Status Date / Time codeine AdvReac Intermediate Vomiting Verified 05/14/20 15:10 tramadol AdvReac Intermediate Vomiting Verified 05/14/20 15:10 Review of Systems Review of Systems: Narrative: CONSTITUTIONAL: Denies fever, chills, or sweats. EYES: Denies visual changes, redness, or discharge. ENT: Denies rhinorrhea, congestion, sore throat, or otalgia. CARDIOVASCULAR: Denies chest pain, palpitations, or edema. RESPIRATORY: Denies cough or dyspnea. GASTROINTESTINAL: Abdominal pain with nausea GENITOURINARY: Denies dysuria or hematuria. SKIN: Denies rash or itching. MUSCULOSKELETAL: Denies back pain, joint pain, or myalgia. NEUROLOGIC: Denies headache, numbness, or weakness. PSYCHIATRIC: Denies anxiety or depression. [facility] Past Medical History Medical History Arthritis Cataracts, bilateral Colonoscopy planned 2009 Coronary artery disease CABG done in 1999, Hypercholesterolemia Hypertension Musculoskeletal disorder Hammertoe right foot, Postmenopausal Seasonal allergies Systemic lupus erythematosus Surgical History Surgical History History of tonsillectomy Family History Family History Mother Family history of malignant neoplasm of breast in first degree relative Patient's mother is Father Patient's father is Acute myocardial infarction Family history of heart disease in male family member before age 55 Social History Social History Smoking status: Former smoker Second hand tobacco smoke exposure: No Smoking end date: 11/27/69 Additional smoking assessment comments: SMOKED < PACK/WEEK X5 YEARS Alcohol intake: current Drinks per week: 7 Substance use: never Additional living arrangements comments: Gender identity (if verbalized by the patient): Female Spiritual care concerns: No Exam Narrative: Exam Narrative: General cedrick
[2020-05-14] MEDS: SODIUM CHLORIDE 0.9% IV 1,000 ML 999 ML IV CONT (15:46)
[2020-05-14 15:49] LABS: Basophils Absolute Auto 0.1 K/mm3 (0.0-0.1); Basophils Percent Auto 0.8 % (0.2-1.2); Eosinophils Absolute Auto 0.7 K/mm3 (0-0.3); Eosinophils Percent Auto 6.1 % (0-4.4); Hematocrit 37.1 % (37.0-47.0); Hemoglobin 12.3 g/dL (12.0-15.0); Immature Granulocyte Absolute 0.04 K/mm3 (0.00-0.031); Immature Granulocyte Percent A 0.3 % (0-0.5); Lymphocytes Percent Auto 13.4 % (18.3-44.2); Mean Corpuscular HGB Conc 33.2 g/dl (32-36); Mean Corpuscular Hemoglobin 31.9 pg (26-34); Mean Corpuscular Volume 96.4 fl (80-100); Mean Platelet Volume 9.4 fl (7.4-10.4); Monocytes Absolute Auto 0.6 K/mm3 (0.1-0.6); Monocytes Percent Auto 5.3 % (2.6-8.5); Neutrophils Absolute Auto 8.8 K/mm3 (1.3-6.7); Neutrophils Percent Auto 74.1 % (45.5-73.1); Platelet Count Result 516 k/mm3 (150-375); Red Blood Count 3.85 M/mm3 (4.2-5.4); Red Cell Distribution Width 12.9 % (11.5-14.5); White Blood Count 11.9 K/mm3 (4.5-10.0)
[2020-05-14 16:00] LABS: Alanine Aminotransferase 18 U/L (4-35); Albumin Level 3.8 g/dL (3.5-5.1); Alkaline Phosphatase 55 U/L (38-126); Anion Gap 5 mmol/L (8-16); Aspartate Amino Transferase 27 U/L (14-36); Bilirubin,Total 0.4 mg/dL (0.2-1.3); Blood Urea Nitrogen 15 mg/dL (7-17); Calcium 8.8 mg/dL (8.4-10.2); Carbon Dioxide 31 mmol/L (22-30); Chloride 102 mmol/L (98-107); Estimated CRCL calculation 47 ml/min; Estimated Glomerular Filt Rate > 60; Glucose 131 mg/dL (65-105); Lipase 99 U/L (23-300); Potassium 3.8 mmol/L (3.4-5.0); Sodium 138 mmol/L (137-145)
[2020-05-14 16:48] LABS: Add Urine Microscopic? YES; Appearance Urine Clear (Clear); Bilirubin Urine Negative (Negative); Blood Urine 2+ (Negative); Color Urine Straw (Yellow); Glucose Urine UA Negative (Negative); Ketones Urine Negative (Negative); Leukocyte Esterase Ur 2+ LEU/UL (Negative); Mucus Urine Rare /lpf; Nitrate Urine Negative (Negative); Protein Urine Negative (Negative); RBC Urine 51-75 /hpf (0-2); Specific Grav Ur 1.012 (1.001-1.035); Squamous Epithelial Cell Urine Rare /hpf (Few); Urobilinogen Urine Negative mg/dL (<2.0); WBC Urine 31-50 /hpf
[2020-05-14 17:55] VITALS: BP 134/70; PULSE 72; RESP 14; O2SAT 99
== END 2020-05-14 18:00 | disposition home or self-care (01) ==
PROVIDERS: Emergency Provider Emergency Medicine; PCP Internal Medicine
DX: K52.9 Noninfective gastroenteritis and colitis, unspecified (principal); N39.0 Urinary tract infection, site not specified; R10.84 Generalized abdominal pain; M19.90 Unspecified osteoarthritis, unspecified site; I10 Essential (primary) hypertension; E78.5 Hyperlipidemia, unspecified; M32.9 Systemic lupus erythematosus, unspecified
CPT/HCPCS: 36415; 74177; 80053; 81001; 83690; 85025; 87086; 87088; 96360; 99284; J7030; Q9967

== ENCOUNTER 2024-01-24 08:42 | Outpatient (CLI) | payer MEDICARE, SELFPAY ==
--- NOTE | ~2024-01-24 | XR_ITS ---
XR abdomen/kub 1V 01/24/2024 09:02 INDICATION: Left renal stone TECHNIQUE: KUB COMPARISON: None FINDINGS: Bowel gas pattern is normal. There is no evidence of free air, mass, organomegaly, ascites or obstruction. No abnormal calculi are seen. The bones appear intact. Moderate lumbar spondylosis with levoscoliosis. Moderate colonic fecal loading. IMPRESSION: 1: No acute abdominal abnormality identified. Reviewed, dictated and finalized at location B.
== END 2024-01-24 08:43 | disposition home or self-care (01) ==
LOC: ANHIMG 08:44
PROVIDERS: PCP Internal Medicine; Visit Provider Urology
DX: N20.0 Calculus of kidney (principal)
CPT/HCPCS: 74018

== ENCOUNTER 2024-04-15 09:52 | Emergency (ER) | payer MEDICARE, SELFPAY ==
--- NOTE | ~2024-04-15 | XR_ITS ---
EXAMINATION: XR chest 1V portable Exam Date/Time: 04/15/2024 14:30 HELP DESK SUPPORT SPECIALIST HISTORY: chest pain Comparison: 04/30/2014. RESULT: Lines, tubes, and devices: Intact sternotomy wires. Ostial markers. Lungs and pleura: Clear. Cardiomediastinal silhouette: Stable. Other: No acute osseous or upper abdominal finding. IMPRESSION: No acute cardiopulmonary process. Reviewed, dictated and finalized at location K. DESK SUPPORT SPECIALIST
--- NOTE | 2024-04-15 09:54 | ECG_ITS ---
Test Date: 2024-04-15 10:07:52 Measurements Intervals [place] Rate: 67 P: 14 OK: 145 QRS: -6 QRSD: 85 T: 38 QT: 404 QTc: 427 Interpretive Statements SINUS RHYTHM LEFT VENTRICULAR HYPERTROPHY AND ST-T CHANGE CONSIDER INFERIOR INFARCT, AGE INDETERMINATE BASELINE ARTIFACT- I, II, III, AVR, AVL, AVF ABNORMAL ECG No previous ECG available for comparison Electronically Signed On 04-15-2024 11:58:10 COLLECTIONS CLERK by Chase Holly D.O.
[2024-04-15 10:28] VITALS: BP 151/61; PULSE 69; RESP 18; TEMP 36.1; O2SAT 98
[2024-04-15 13:54] VITALS: BP 137/64; PULSE 70; RESP 16; TEMP 36.8; O2SAT 97
--- NOTE | 2024-04-15 14:06 | ED_ITS ---
HPI - General Adult General Chief complaint: Unspecified Stated complaint: i feel off Time Seen by Provider: 04/15/24 14:01 Source: patient Mode of arrival: ambulatory Limitations: no limitations History of Present Illness HPI narrative: this is a 79 year old female who presents to the ED for chief complaint of f eeling off. States that she has had pain in her chest and feels that generally a little weak. This is being going on for the past month. She does state that her chest is tender to palpation. Denies injury. Denies shortness of breath, fevers, chills, abdominal pain, nausea, vomiting , diarrhea. no other recent illness. Related Data Home Medications Medication Instructions Recorded Confirmed aspirin 81 mg tablet,delayed 81 mg PO DAILY 05/07/19 03/07/24 release (Adult Low Dose Aspirin) diclofenac sodium 1 % topical gel 2 gm topical QID PRN Pain 05/07/19 03/07/24 (Voltaren) ezetimibe 10 mg tablet (Zetia) 10 mg PO DAILY 05/07/19 03/07/24 felodipine 5 mg tablet,extended 5 mg PO QAM 05/07/19 03/07/24 release 24 hr lisinopril 40 mg tablet 40 mg PO HS 05/07/19 03/07/24 metoprolol tartrate 50 mg tablet 50 mg PO QAM 05/07/19 03/07/24 atorvastatin 20 mg tablet (Lipitor) 20 mg PO DAILY 05/10/19 03/07/24 cholecalciferol (vitamin D3) 50 50 mcg PO DAILY 04/09/20 03/07/24 mcg (2,000 unit) capsule (Vitamin D3) geewfpmmyqxa-Sh-qufp-minerals 1 tablet PO DAILY 04/09/20 03/07/24 (Multiple Vitamin, Womens tablet) hydroxychloroquine 200 mg tablet 300 mg PO QAM 05/15/21 03/07/24 (Plaquenil) folic acid 1 mg tablet 1 mg PO DAILY 11/18/21 03/07/24 methotrexate sodium 2.5 mg tablet 2.5 mg PO WEEKLY 11/18/21 03/07/24 Allergies Allergy/AdvReac Type Severity Reaction Status Date / Time codeine AdvReac Intermediate Vomiting Verified 03/07/24 07:36 tramadol AdvReac Intermediate Vomiting Verified 03/07/24 07:36 Review of Systems Review of Systems: All systems as dictated in [facility] Past Medical History Medical History (Updated 04/15/24 @ 16:39 by Aaron Pierre PA-C) Arthritis Cataracts, bilateral Colonoscopy planned 2009 Coronary artery disease CABG done in 1999, Hypercholesterolemia Hypertension Musculoskeletal disorder Hammertoe right foot, Postmenopausal Seasonal allergies Systemic lupus erythematosus Surgical History Surgical History ) History of dilatation and curettage History of hysterectomy History of tonsillectomy Family History Family History ) Mother Family history of malignant neoplasm of breast in first degree relative Patient's mother is Father Patient's father is Acute myocardial infarction Family history of heart disease in male family member before age 55 Social History Social History ) Smoking status: Never smoker Second hand tobacco smoke exposure: No Smoking end date: 11/27/69 Additional smoking assessment comments: SMOKED < PACK/WEEK X5 YEARS Alcohol intake: current Drinks per week: 7 Alcohol use details: WINE, 1 GLASS/DAY Substance use: never Lack of Transportation: No Lack of Food: Never True Current Housing: I Have Housing Concerned About Future Housing: No Difficulty Paying Gas/Electric Bills: No Difficulty Paying for Meds: No Currently Unemployed: No Education: High School Diploma/GED Difficulty w/ Childcare or Family Care: No Living arrangements: with family Additional living arrangements comments: Gender identity (if verbalized by the patient): Female Spiritual care concerns: No Exam Narrative: GENERAL: Well-appearing, well-nourished, and in no acute distress. HEAD: Normocephalic, atraumatic. EYES: PERRLA and EOMI. ENT: Nares clear, no rhinorrhea or epistaxis. Mucous membranes moist. Oropharynx without tonsillar hypertrophy exudate or other lesions. NECK: Supple. No adenopathy or masses. CHEST: No respiratory distress. Clear to auscultation. No wheezes rales or rhonchi. Anterior chest wall is tender at the costochondral junction bilaterally, worse on left HEART: Regular rate and rhythm. No murmur heard. Normal peripheral pulses. ABDOMEN: Soft, nontender, nondistended, normal active bowel sounds. MSK: Normal range of motion. No edema. SKIN: Warm, dry, no rash. NEURO: Alert and oriented x4. No focal deficits. PSYCH: Normal mood and affect. Course Vital Signs Vital signs: Vital Signs Temperature 97.0 F L 04/15/24 10:28 Pulse Rate 69 04/15/24 10:28 Respiratory Rate 18 04/15/24 10:28 Blood Pressure 151/61 H 04/15/24 10:28 Pulse Oximetry 98 04/15/24 10:28 Temperature 97.8 F 04/15/24 16:57 Pulse Rate 82 04/15/24 16:57 Respiratory Rate 16 04/15/24 16:57 Blood Pressure 142/83 H 04/15/24 16:57 Pulse Oximetry 99 04/15/24 16:57 Medical Decision Making MDM Narrative Medical decision making narrative: This is a 79-year-old female who presents to the ED for chief complaint of intermittent chest pain and feeling off. Vitals are normal. Exam is benign. There is chest wall tenderness at the costochondral joints, worse on the left. EKG shows sinus rhythm with no acute ischemic findings. Lab work is unremarkable overall. Troponin is normal. Heart score is 3. Chest x-ray is unremarkable. Presentation consistent with costochondritis, as it is musculoskeletal appearing. She was given Aleve here. Patient will be discharged in stable condition. Supportive measures discussed and return precautions given. Patient is understanding and agreeable with plan for discharge with PCP follow-up. Vital Signs Vital Signs: Vital Signs Temperature 97.0 F L 04/15/24 10:28 Pulse Rate 69 04/15/24 10:28 Respiratory Rate 18 04/15/24 10:28 Blood Pressure 151/61 H 04/15/24 10:28 Pulse Oximetry 98 04/15/24 10:28 Temperature 97.8 F 04/15/24 16:57 Pulse Rate 82 04/15/24 16:57 Respiratory Rate 16 04/15/24 16:57 Blood Pressure 142/83 H 04/15/24 16:57 Pulse Oximetry 99 04/15/24 16:57 Lab Data 04/15/24 15:01 04/15/24 15:55 Labs: Lab Results 04/15/24 04/15/24 Range/Units 15:01 15:55 WBC 6.2 (4.5-10.0) K/mm3 RBC 4.07 L (4.2-5.4) M/mm3 Hgb 13.5 (12.0-15.0) g/dL Hct 41.1 (37.0-47.0) % MCV 101.0 H (80-100) fl MCH 33.2 (26-34) pg MCHC 32.8 (32-36) g/dl RDW 13.7 (11.5-14.5) % Plt Count 304 (150-375) k/mm3 MPV 9.7 (7.4-10.4) fl Immature Gran % (Auto) 0.2 (0-0.5) % Neut % (Auto) 68.0 (45.5-73.1) % Lymph % (Auto) 23.4 (18.3-44.2) % [place] % (Auto) 5.7 (2.6-8.5) % Eos % (Auto) 1.6 (0-4.4) % Baso % (Auto) 1.1 (0.2-1.2) % Lymph # (Auto) 1.45 (0.9-3.2) K/mm3 [place] # (Auto) 0.4 (0.1-0.6) K/mm3 Eos # (Auto) 0.1 (0-0.3) K/mm3 Baso # (Auto) 0.1 (0.0-0.1) K/mm3 Abs Immat Gran (auto) 0.01 (0.00-0.031) K/mm3 Absolute Neuts (auto) 4.2 (1.3-6.7) K/mm3 Absolute Nucleated RBC 0.000 (0.0-0.012) K/mm3 Nucleated RBC % 0.0 (0.0-0.2) % Sodium 140 (137-145) mmol/L Potassium 4.2 (3.4-5.0) mmol/L Chloride 104 (98-107) mmol/L Carbon Dioxide 27 (22-30) mmol/L Anion Gap 9 (4-12) mmol/L BUN 16 (7-17) mg/dL Creatinine 0.80 (0.7-1.0) mg/dL Estim Creat Clear Calc 39 ml/min Estimated GFR > 60 (59 - ) Glucose 83 (65-110) mg/dL Calcium 9.6 (8.4-10.2) mg/dL Phosphorus 3.5 (2.5-4.5) mg/dL Magnesium 2.1 (1.6-2.3) mg/dL Total Bilirubin 0.7 (0.2-1.3) mg/dL AST 45 H (14-36) U/L ALT 47 H (6-35) U/L Alkaline Phosphatase 73 (38-126) U/L Troponin I < 0.012 (0.000-0.034) ng/mL Total Protein 8.0 (6.3-8.2) g/dL Albumin 4.8 (3.5-5.1) g/dL Lipase 175 (23-300) U/L ECG Data EKG #1: ECG completion date: 04/15/24 ECG completion time: 10:07 Prior ECG tracings: not available for review Interpretation: Sinus rhythm Rate 67 Normal QRS Normal QTC No acute ischemic findings Discharge Plan Discharge Clinical Impression: Costochondritis Patient Disposition: Home, Self-Care Condition: Stable Instructions: Antibiotic Form Additional Instructions: exam today is consistent with costochondritis. Your lab work is reassuring. Please follow-up with PCP on this issue. Start taking Aleve twice per day for pain control. If you have any new or worsening symptoms please return to the ER for further evaluation. Prescriptions: No Action cetirizine [Zyrtec] 10 mg tablet 10 mg PO DAILY Qty: 30 0RF aspirin [Adult Low Dose Aspirin] 81 mg tablet,delayed release (DR/EC) 81 mg PO DAILY felodipine 5 mg tablet extended release 24 hr 5 mg PO QAM lisinopril 40 mg tablet 40 mg PO HS metoprolol tartrate 50 mg tablet 50 mg PO QAM diclofenac sodium [Voltaren] 1 % gel 2 gm TOPICAL QID PRN (Reason: Pain) ezetimibe [Zetia] 10 mg tablet 10 mg PO DAILY hydroxychloroquine [Plaquenil] 200 mg tablet 300 mg PO QAM folic acid 1 mg tablet 1 mg PO DAILY methotrexate sodium 2.5 mg tablet 2.5 mg PO WEEKLY alprazolam [Xanax] 0.25 mg tablet 0.25 mg PO DAILY PRN (Reason: anxiety) Qty: 30 0RF atorvastatin [Lipitor] 20 mg tablet 20 mg PO DAILY Multiple Vitamin, Womens Tablet 1 tablet PO DAILY cholecalciferol (vitamin D3) [Vitamin D3] 50 mcg (2,000 unit) Capsule 50 mcg PO DAILY hydrocodone-acetaminophen [[place]] 5-325 mg tablet 1 tablet PO Q4H PRN (Reason: pain) Qty: 20 0RF Follow-up/Referrals: Chan Chaidez DO [Primary Care Provider] - Time of Disposition: 16:39 Quality HEART score for chest pain patients History: slightly suspicious ECG: normal Age: > or = to 65 years Risk factors: 1 or 2 risk factors Troponin: < or = to 1x normal limit Heart score: 3
[2024-04-15] MEDS: NAPROXEN SODIUM 220 MG TABLET PO (14:47)
[2024-04-15 15:11] LABS: Basophils Absolute Auto 0.1 K/mm3 (0.0-0.1); Basophils Percent Auto 1.1 % (0.2-1.2); Eosinophils Absolute Auto 0.1 K/mm3 (0-0.3); Eosinophils Percent Auto 1.6 % (0-4.4); Hematocrit 41.1 % (37.0-47.0); Hemoglobin 13.5 g/dL (12.0-15.0); Immature Granulocyte Absolute 0.01 K/mm3 (0.00-0.031); Immature Granulocyte Percent A 0.2 % (0-0.5); Lymphocytes Absolute Auto 1.45 K/mm3 (0.9-3.2); Lymphocytes Percent Auto 23.4 % (18.3-44.2); Mean Corpuscular HGB Conc 32.8 g/dl (32-36); Mean Corpuscular Hemoglobin 33.2 pg (26-34); Mean Platelet Volume 9.7 fl (7.4-10.4); Monocytes Absolute Auto 0.4 K/mm3 (0.1-0.6); Monocytes Percent Auto 5.7 % (2.6-8.5); Neutrophils Absolute Auto 4.2 K/mm3 (1.3-6.7); Platelet Count Result 304 k/mm3 (150-375); Red Blood Count 4.07 M/mm3 (4.2-5.4); Red Cell Distribution Width 13.7 % (11.5-14.5); White Blood Count 6.2 K/mm3 (4.5-10.0)
[2024-04-15 15:36] LABS: Troponin I < 0.012 ng/mL (0.000-0.034)
[2024-04-15 16:25] LABS: Alanine Aminotransferase 47 U/L (6-35); Albumin Level 4.8 g/dL (3.5-5.1); Alkaline Phosphatase 73 U/L (38-126); Anion Gap 9 mmol/L (4-12); Aspartate Amino Transferase 45 U/L (14-36); Bilirubin,Total 0.7 mg/dL (0.2-1.3); Blood Urea Nitrogen 16 mg/dL (7-17); Calcium 9.6 mg/dL (8.4-10.2); Carbon Dioxide 27 mmol/L (22-30); Chloride 104 mmol/L (98-107); Estimated CRCL calculation 39 ml/min; Estimated Glomerular Filt Rate > 60; Glucose 83 mg/dL (65-110); Lipase 175 U/L (23-300); Magnesium 2.1 mg/dL (1.6-2.3); Phosphorus 3.5 mg/dL (2.5-4.5); Potassium 4.2 mmol/L (3.4-5.0); Sodium 140 mmol/L (137-145)
[2024-04-15 16:57] VITALS: BP 142/83; PULSE 82; RESP 16; TEMP 36.6; O2SAT 99
== END 2024-04-15 16:59 | disposition home or self-care (01) ==
PROVIDERS: Emergency Provider Physician Assistant; PCP Internal Medicine
DX: M94.0 Chondrocostal junction syndrome [Tietze] (principal); Z79.82 Long term (current) use of aspirin; I10 Essential (primary) hypertension; I25.10 Atherosclerotic heart disease of native coronary artery without angina pectoris; E78.00 Pure hypercholesterolemia, unspecified; M32.9 Systemic lupus erythematosus, unspecified
CPT/HCPCS: 36415; 71045; 80053; 83690; 83735; 84100; 84484; 85025; 93005; 99284; A9270